=== PATIENT | female | born 1950 | race Caucasian/White ===

== ENCOUNTER → 2017-03-26 | Outpatient (CLI) | payer MEDICARE ==
[2017-03-26 11:51] LABS: Basophils % (A) 1 %; CH 31.3; CHCM 33.5; Eosinophils # (A) 0.2 k/uL (0-0.7); Eosinophils % (A) 3 %; HCT 41.2 % (34.0-46.0); HDW 2.35; Luc # (Auto) 0.16; Luc % (Auto) 3; Lymphocytes # (A) 1.4 k/uL (1.0-4.8); Lymphocytes % (A) 27 %; MCH 31.8 pg (25.0-35.0); MCHC 33.9 g/dL (31.0-37.0); MCV 93.6 fL (80.0-100.0); Mean Platelet Volume 8.1; Monocytes # (A) 0.4 k/uL (0-1.0); Monocytes % (A) 7 %; Neutrophils # (A) 3.1 k/uL (1.3-7.7); Neutrophils % (A) 60 %; RDW 12.7 % (11.5-15.5); WBC 5.2 k/uL (3.8-10.6); WBC (Perox) 5.41
[2017-03-26 12:24] LABS: ALT 36 U/L (9-52); AST 26 U/L (14-36); Alkaline Phosphatase 118 U/L (38-126); Anion Gap 9 mmol/L; Blood Urea Nitrogen 24 mg/dL (7-17); Calcium 9.5 mg/dL (8.4-10.2); Carbon Dioxide 27 mmol/L (22-30); Chloride 107 mmol/L (98-107); Cholesterol 256 mg/dL (<200); Glucose 95 mg/dL (74-99); HDL Cholesterol 55 mg/dL (40-60); Non-African American GFR(MDRD) >60 (>60 ml/min/1.73 sqM); Potassium 4.6 mmol/L (3.5-5.1); Sodium 143 mmol/L (137-145); Total Bilirubin 0.6 mg/dL (0.2-1.3); Total Protein 7.3 g/dL (6.3-8.2); Triglycerides 216 mg/dL (<150)
== END | disposition home or self-care (01) ==
LOC: LABWHC1 11:16
PROVIDERS: ATTEND Family Medicine
DX: Z00.00 Encounter for general adult medical examination without abnormal findings (principal); E03.9 Hypothyroidism, unspecified; K21.0 Gastro-esophageal reflux disease with esophagitis; M19.90 Unspecified osteoarthritis, unspecified site
CPT/HCPCS: 36415; 80053; 80061; 84439; 84443; 85025

== ENCOUNTER → 2017-04-15 | Outpatient (CLI) | payer MEDICARE ==
--- NOTE | 2017-04-15 15:03 | XR ---
EXAMINATION TYPE: XR chest 2V DATE OF EXAM: 04/15/2017 COMPARISON: NONE HISTORY: Shortness of breath TECHNIQUE: Frontal and lateral views of the chest are obtained. FINDINGS: Scattered senescent parenchymal changes noted. Hyperinflation compatible with COPD. No evidence for infiltrate. No evidence for atelectasis. Heart size is stable. Fixed sliding-type hiatal hernia is noted. Remote left-sided rib fractures iden tified. Mediastinal structures are stable and grossly unremarkable. No evidence for hilar prominence. Degenerative changes dorsal spine. IMPRESSION: 1. No evidence for acute pulmonary disease.
== END | disposition home or self-care (01) ==
LOC: RADXRMAIN 14:22
PROVIDERS: ATTEND Family Medicine
DX: R06.02 Shortness of breath (principal)
CPT/HCPCS: 71020

== ENCOUNTER 2017-04-17 07:31 | Day surgery (SDC) | payer MEDICARE ==
[2017-04-13 09:47] VITALS: BMI 35.2
[~2017-04-17 07:31] MED LIST: LACTATED RINGERS 1,000 ML IV SCH; LIDOCAINE 1% 20 ML VIAL (10MG/ML) FOR IV START INTRADERMA PRN
[2017-04-17 08:14] VITALS: RESP 18; TEMP 97.8
[2017-04-17] MEDS ORDERED: GLYCOPYRROLATE 0.2 MG/ML 2 ML VIAL ONE (09:15)
[2017-04-17] MEDS ORDERED: PROPOFOL 10 MG/ML 20 ML VIAL IV ONE (09:15)
[2017-04-17] MEDS ORDERED: LIDOCAINE 1% INJ 10MG/ML (20 ML MDV) ONE (09:15)
--- NOTE | 2017-04-17 09:26 | P.PCN ---
Date of Procedure: 04/17/17 Preoperative Diagnosis: Postoperative Diagnosis: Procedure(s) Performed: BRIEF HISTORY: Patient is a 67-year-old, pleasant, white female, scheduled for an upper endoscopy as a part of evaluation of long-standing history of GERD of several years duration. She is status post antireflux surgery 5 years ago and was able to go off of the Nexium for the last 1 year has been having recurrent symptoms. Currently Nexium 20 mg daily and doing well.. PROCEDURE PERFORMED: Esophagogastroduodenoscopy with biopsy. PREOPERATIVE DIAGNOSIS: Long-standing history of GERD status post antireflux surgery 5 years ago now with recurrent symptoms. IV sedation per anesthesia. PROCEDURE: After informed consent was obtained, the patient was brought into the endoscopy unit. IV sedation was administered by Anesthesia under continuous monitoring. Initially the Olympus GIF-140 video endoscope was inserted into the mouth. Esophagus intubated without any difficulty. It was gradually advanced into the stomach and duodenum and carefully examined. The bulb and the second part of the duodenum appeared normal. The scope at this time was withdrawn to the stomach, adequately insufflated with air, and upon careful examination, mucosa of the antrum, body, cardia and the fundus appeared normal. The Jose fundoplication was intact. No recurrence of hiatal hernia noted. The scope was then withdrawn into the esophagus. The GE junction was located at 34 cm from the incisors. There was a 2 mm tongue of Singh's appearing mucosa just proximal to the GE junction and this was biopsied. The rest of the esophagus appeared normal. There were no erosions or ulcerations seen and the patient tolerated the procedure well. IMPRESSION: 1. Intact Jose fundoplication. 2. Short segment Singh's esophagus status post biopsy. RECOMMENDATIONS: The findings of this examination were discussed with the patient as well as her family. She was advised to continue with Nexium 20 mg daily and follow antireflux measures. If the biopsy confirms presence of Singh's esophagus she can have a repeat upper endoscopy in 2 years.. Implants: Indications for Procedure: Operative Findings: Description of Procedure:
[2017-04-17 09:51] VITALS: BP 115/74; PULSE 88
== END 2017-04-17 10:13 | disposition home or self-care (01) ==
LOC: ORWHC2ENDO 07:31
PROVIDERS: ATTEND Internal Medicine Gastroenterology
DX: K22.70 Barrett's esophagus without dysplasia (principal); K21.9 Gastro-esophageal reflux disease without esophagitis; E07.9 Disorder of thyroid, unspecified; Z79.1 Long term (current) use of non-steroidal anti-inflammatories (NSAID); Z79.899 Other long term (current) drug therapy; Z88.0 Allergy status to penicillin
CPT/HCPCS: 88305; 43239; J2001; J2704

== ENCOUNTER → 2017-04-21 | Outpatient (CLI) | payer MEDICARE ==
--- NOTE | 2017-04-23 09:46 | MM ---
Reason for exam: screening (asymptomatic). Last mammogram was performed 2 years and 9 months ago. History: Patient is postmenopausal and has history of endometrial cancer at age 41. Physical Findings: A clinical breast exam by your physician is recommended on an annual basis and results should be correlated with mammographic findings. MG 3D Screening Mammo W/Cad Bilateral CC and MLO view(s) were taken. Prior study comparison: July 14, 2014, bilateral MG screening mammo w CAD. August 27, 2012, bilateral digital screening mammo w/CAD. August 04, 2011, bilateral digital screening mammo w/CAD. There are scattered fibroglandular densities. No significant changes when compared with prior studies. ASSESSMENT: Negative, BI-RAD 1 RECOMMENDATION: Routine screening mammogram of both breasts in 1 year.
== END | disposition home or self-care (01) ==
LOC: RADMAMWWP 10:54
PROVIDERS: ATTEND Family Medicine
DX: Z12.31 Encounter for screening mammogram for malignant neoplasm of breast (principal)
CPT/HCPCS: 77063; G0202

== ENCOUNTER → 2017-12-16 | Outpatient (CLI) | payer OTHER, MEDICARE ==
--- NOTE | 2017-12-16 11:15 | XR ---
EXAMINATION TYPE: XR chest 2V DATE OF EXAM: 12/16/2017 COMPARISON: 04/15/2017 HISTORY: 67-year-old female with cough and chest pain TECHNIQUE: Frontal and lateral views FINDINGS: ACF hardware and bilateral shoulder replacements partially visualized. Heart appears normal size. Aor ta and pulmonary vasculature within normal. Chronic healed left-sided rib fracture deformities. There is some retrocardiac density which seems to correspond to a rounded area behind the left atrium on t he lateral view. This was present back on 04/15/2017. No consolidation or pleural effusion. IMPRESSION: 1. Suspect a moderate sized hiatal hernia. CT chest can exclude an area of retrocardiac consolidation or mass. 2. No acute cardiopulmonary process.
[2017-12-16 17:55] LABS: Progesterone 0.6 ng/mL
== END | disposition home or self-care (01) ==
LOC: LABWHC1 09:38
PROVIDERS: ATTEND Family Medicine
DX: R05 Cough (principal); R07.9 Chest pain, unspecified; E03.9 Hypothyroidism, unspecified; N95.1 Menopausal and female climacteric states
CPT/HCPCS: 36415; 71046; 82533; 82670; 84144; 84402; 93005

== ENCOUNTER → 2018-10-12 | Outpatient (CLI) | payer OTHER, MEDICARE ==
[2018-10-12 17:44] LABS: T4, Free (Free Thyroxine) 1.6 ng/dL (0.80-1.80)
== END | disposition home or self-care (01) ==
LOC: LABWHC1 10:52
PROVIDERS: ATTEND Family Medicine
DX: E03.9 Hypothyroidism, unspecified (principal)
CPT/HCPCS: 36415; 84439; 84443

== ENCOUNTER → 2018-10-26 | Outpatient (CLI) | payer MEDICARE, OTHER ==
--- NOTE | 2018-10-26 15:24 | XR ---
EXAMINATION TYPE: XR chest 2V DATE OF EXAM: 10/26/2018 COMPARISON: 12/16/2017 INDICATION: Cough and congestion TECHNIQUE: Frontal and lateral views of the chest are obtained. FINDINGS: The heart size is normal. The pulmonary vasculature is normal. The lungs are clear. Old left upper rib fractures are evident. Hiatal hernia may be present. No sign ificant interval changes evident. IMPRESSION: 1. No acute pulmonary process. 2. Hiatal hernia. 3. Postsurgical changes at bilateral shoulders cervical spine
== END | disposition home or self-care (01) ==
LOC: RADXRMAIN 15:04
PROVIDERS: ATTEND Family Medicine
DX: K44.9 Diaphragmatic hernia without obstruction or gangrene (principal); R05 Cough; Z98.890 Other specified postprocedural states
CPT/HCPCS: 71046

== ENCOUNTER → 2019-06-02 | Outpatient (CLI) | payer MEDICARE, OTHER ==
[2019-06-02 08:55] LABS: Basophils % (A) 1 %; Eosinophils # (A) 0.2 k/uL (0-0.7); Eosinophils % (A) 3 %; HCT 41.2 % (34.0-46.0); HGB 13.7 gm/dL (11.4-16.0); Lymphocytes # (A) 1.6 k/uL (1.0-4.8); Lymphocytes % (A) 27 %; MCH 31.6 pg (25.0-35.0); MCHC 33.3 g/dL (31.0-37.0); MCV 94.8 fL (80.0-100.0); Mean Platelet Volume 7.9; Monocytes # (A) 0.4 k/uL (0-1.0); Monocytes % (A) 7 %; Neutrophils # (A) 3.5 k/uL (1.3-7.7); Neutrophils % (A) 60 %; Platelet Count 310 k/uL (150-450); RBC 4.35 m/uL (3.80-5.40); RDW 12.7 % (11.5-15.5); WBC 5.9 k/uL (3.8-10.6)
[2019-06-02 09:02] LABS: Albumin 4.4 g/dL (3.5-5.0); Calcium 9.7 mg/dL (8.4-10.2); Potassium 4.3 mmol/L (3.5-5.1); Total Bilirubin 0.5 mg/dL (0.2-1.3); Total Protein 7.6 g/dL (6.3-8.2)
[2019-06-02 09:12] LABS: T4, Free (Free Thyroxine) 0.82 ng/dL (0.78-2.19)
--- NOTE | 2019-06-02 10:12 | MM ---
Reason for exam: screening (asymptomatic). Last mammogram was performed 2 years and 1 month ago. History: Patient is postmenopausal and has history of endometrial cancer at age 41. Physical Findings: A clinical breast exam by your physician is recommended on an annual basis and results should be correlated with mammographic findings. MG Screening Mammo w CAD Bilateral CC and MLO view(s) were taken. XCCL view(s) were taken of the right breast. Prior study comparison: April 21, 2017, bilateral MG 3d screening mammo w/cad. July 14, 2014, bilateral MG screening mammo w CAD. The breast tissue is heterogeneously dense. This may lower the sensitivity of mammography. There are benign appearing round calcifications bilaterally. There is no discrete abnormality. ASSESSMENT: Benign, BI-RAD 2 RECOMMENDATION: Routine screening mammogram of both breasts in 1 year.
== END | disposition home or self-care (01) ==
LOC: RADMAMWWP 07:44
PROVIDERS: ATTEND Family Medicine
DX: Z12.31 Encounter for screening mammogram for malignant neoplasm of breast (principal); E03.9 Hypothyroidism, unspecified
CPT/HCPCS: 77067; 80053; 80061; 84439; 84443; 85025

== ENCOUNTER 2019-11-02 08:41 | Day surgery (SDC) | payer MEDICARE, OTHER ==
[2019-10-31 18:10] VITALS: BMI 34.2
[2019-11-02 09:14] VITALS: TEMP 97.1
[2019-11-02] MEDS ORDERED: LIDOCAINE 1% INJ 10MG/ML (20 ML MDV) ONE (10:06)
[2019-11-02] MEDS ORDERED: PROPOFOL 10 MG/ML 20 ML VIAL IV ONE (10:06)
--- NOTE | 2019-11-02 10:27 | P.PCN ---
Date of Procedure: 11/02/19 Procedure(s) Performed: Brief history: Patient is a pleasant 69-year-old white female scheduled for an elective upper endoscopy as well as colonoscopy as a part of evaluation of reflux and history of GERD/Singh's esophagus and prior history of colon polyps. Procedure performed: Esophagogastroduodenoscopy with biopsy Colonoscopy Preoperative diagnosis: GERD/history of Singh's esophagus History of colon polyps Anesthesia: MAC Procedure: After informed consent was obtained from the patient was brought into the endoscopy unit and IV sedation was administered by anesthesia under continuous monitoring. Initially upper endoscopy was done. The Olympus GF 160 video endoscope was inserted inserted into the mouth and esophagus intubated without any difficulty and was gradually advanced into the stomach and duodenum and carefully examined. The bulb and second part of the duodenum appeared normal. The scope was then withdrawn into the stomach adequately insufflated with air and upon careful examination the antrum had mild gastritis and biopsies were done from this area. The body, cardia and fundus appeared normal. The scope was then withdrawn into the esophagus. The GE junction was located at 39 cm to the incisors. It appeared regular with no erythema erosions or ulcerations. There was a 3 mm tongue of Singh's appearing mucosa just proximal to the GE junction which was biopsied. Rest of the esophagus appeared normal. Patient tolerated the procedure well. At this time the patient continued to remain sedation. Initial digital rectal examination was normal. Olympus CF 160 video colonoscope was then inserted into the rectum and gradually advanced to the cecum without any difficulty. Careful examination was performed as the scope was gradually being withdrawn. The prep was excellent. The cecum, ascending colon, transverse colon, descending colon, sigmoid colon and rectum appeared normal. Retroflexion was performed in the rectum and no lesions were noted. Patient tolerated the procedure well. Impression: 1. Upper endoscopy revealed short segment Singh's esophagus and mild antral gastritis 2. Colonoscopy was within normal limits with no evidence of colitis or colorectal neoplasia. Recommendations: Findings of this examination were discussed with the patient as well as her family. She was advised to follow with the biopsy results. if the biopsy confirms presence of Singh's esophagus he can have a repeat upper endoscopy in 2-3 years . She can have a repeat colonoscopy in 5 years because of the prior history of colon polyps.
[2019-11-02 10:31] VITALS: RESP 16
[2019-11-02 10:53] VITALS: BP 155/82; PULSE 89
== END 2019-11-02 11:10 | disposition home or self-care (01) ==
LOC: ORWHC2ENDO 08:41
PROVIDERS: ATTEND Internal Medicine Gastroenterology
DX: Z12.11 Encounter for screening for malignant neoplasm of colon (principal); K29.50 Unspecified chronic gastritis without bleeding; K22.70 Barrett's esophagus without dysplasia; K21.9 Gastro-esophageal reflux disease without esophagitis; Z86.010 Personal history of colon polyps; E07.9 Disorder of thyroid, unspecified; F32.9 Major depressive disorder, single episode, unspecified; Z96.653 Presence of artificial knee joint, bilateral; Z90.710 Acquired absence of both cervix and uterus; Z98.890 Other specified postprocedural states; Z79.890 Hormone replacement therapy; Z79.899 Other long term (current) drug therapy; Z88.0 Allergy status to penicillin
CPT/HCPCS: 88305; 43239; J2001; J2704; G0105; 45378

== ENCOUNTER → 2022-08-21 | Outpatient (CLI) | payer MEDICARE, OTHER, BC ==
[2022-08-21 15:02] LABS: Basophils # (A) 0.04 X 10*3/uL (0.00-0.10); Basophils % (A) 0.7 %; Eosinophils # (A) 0.16 X 10*3/uL (0.04-0.35); Eosinophils % (A) 2.9 %; HCT 41.9 % (37.2-46.3); HGB 13.5 g/dL (12.0-15.0); Immature Grans, Automated 0.2 %; Lymphocytes # (A) 1.28 X 10*3/uL (0.90-5.00); Lymphocytes % (A) 23.4 %; MCH 31.7 pg (27.0-32.0); MCHC 32.2 g/dL (32.0-37.0); MCV 98.4 fL (80.0-97.0); Mean Platelet Volume 12.4 fL (9.5-12.2); Monocytes # (A) 0.54 X 10*3/uL (0.20-1.00); Monocytes % (A) 9.9 %; NRBC Per 100 WBC 0 /100 WBCS (0.0-0.0); Neutrophils # (A) 3.44 X 10*3/uL (1.80-7.70); Neutrophils % (A) 62.9 %; Platelet Count 259 X 10*3/uL (140-440); RBC 4.26 X 10*6/uL (4.10-5.20); RDW 12.3 % (11.5-14.5); WBC 5.47 X 10*3/uL (4.50-10.00)
[2022-08-21 15:21] LABS: ALT 21 U/L (8-44); AST 23 U/L (13-35); African American GFR (CKD) 65.6 (60.0-200.0); Albumin 4.3 g/dL (3.8-4.9); Albumin/Globulin Ratio 1.48 (1.60-3.17); Alkaline Phosphatase 105 U/L (41-126); Blood Urea Nitrogen 22.1 mg/dL (9.0-27.0); Calcium 9.4 mg/dL (8.7-10.3); Carbon Dioxide 26.3 mmol/L (20.0-27.5); Chloride 104 mmol/L (96-109); Chol/HDL Ratio 4.97 Ratio; Globulin 2.9 g/dL (1.6-3.3); Glucose 90 mg/dL (70-110); LDL Cholesterol,Calculated 175.9 mg/dL (0.0-131.0); Non-African American GFR(CKD) 56.6 (60.0-200.0); Potassium 4.6 mmol/L (3.5-5.5); Sodium 140 mmol/L (135-145); Total Protein 7.2 g/dL (6.2-8.2); Uric Acid 5.6 mg/dL (2.9-7.7)
== END | disposition home or self-care (01) ==
LOC: LABWHC1 08:29
PROVIDERS: ATTEND Family Medicine
DX: I10 Essential (primary) hypertension (principal)
CPT/HCPCS: 36415; 80053; 80061; 82652; 83036; 84439; 84443; 84550; 85025

== ENCOUNTER → 2023-02-20 | Outpatient (CLI) | payer MEDICARE, OTHER ==
[2023-02-20 16:57] LABS: T4, Free (Free Thyroxine) 1.51 ng/dL (0.800-1.800)
== END | disposition home or self-care (01) ==
LOC: LABWHC1 08:14
PROVIDERS: ATTEND Family Medicine
DX: E03.9 Hypothyroidism, unspecified (principal)
CPT/HCPCS: 36415; 84439; 84443

== ENCOUNTER → 2023-08-18 | Outpatient (CLI) | payer OTHER, MEDICARE ==
--- NOTE | 2023-08-19 09:50 | MM ---
Reason for Exam: Screening (asymptomatic). Last mammogram was performed 4 year(s) and 2 month(s) ago. Patient History: Menarche at age 12. First Full-Term at age 17. Hysterectomy at age 41. Postmenopausal. Endometrial cancer, age 41. Risk Values: Milagros 5 year model risk: 1.4%. NCI Lifetime model risk: 3.6%. Prior Study Comparison: 07/14/2014 Bilateral Screening Mammogram, [facility]. 04/21/2017 Bilateral Screening Mammogram, [facility]. 06/02/2019 Bilateral Screening Mammogram, [facility]. Tissue Density: The breast tissue is heterogeneously dense. This may lower the sensitivity of mammography. Findings: Analyzed By CAD. There is no suspicious group of microcalcifications or new suspicious mass. Benign-appearing calcifications bilaterally. Overall Assessment: Benign, BI-RAD 2 Management: Screening Mammogram of both breasts in [address] [facility] will attempt to contact patient to return for supplemental views and ultrasound if indicated. Patient should continue monthly self-breast exams. A clinical breast exam by your physician is recommended on an annual basis. This exam should not preclude additional follow-up of suspicious palpable abnormalities. Note on Milagros scores and lifetime risk: 1. A Milagros score greater than 3% is considered moderate risk. If this is the case, consider specialist referral to assess eligibility for a risk reducing agent. 2. If overall lifetime risk for the development of breast cancer is 20% or higher, the patient may qualify for future screening with alternating mammogram and breast MRI. Electronically signed and approved by: Barrett Chappell DO
== END | disposition home or self-care (01) ==
LOC: RADMAMWWP 09:03
PROVIDERS: ATTEND Family Medicine
DX: Z12.31 Encounter for screening mammogram for malignant neoplasm of breast (principal); Z78.0 Asymptomatic menopausal state
CPT/HCPCS: 77063; 77067

== ENCOUNTER → 2024-09-29 | Outpatient (CLI) | payer MEDICARE ==
--- NOTE | 2024-09-29 08:56 | MM ---
Reason for Exam: Screening (asymptomatic). Last mammogram was performed 1 year(s) and 2 month(s) ago. Patient History: Menarche at age 12. First Full-Term at age 17. Hysterectomy at age 41. Postmenopausal. Risk Values: Milagros 5 year model risk: 1.4%. NCI Lifetime model risk: 3.4%. Prior Study Comparison: 04/21/2017 Bilateral Screening Mammogram, [facility]. 06/02/2019 Bilateral Screening Mammogram, [facility]. 08/18/2023 Bilateral MG 3D screening mammo w/cad, [facility]. Tissue Density: The breasts are heterogeneously dense, which may obscure small masses. Findings: Analyzed By CAD. Right breast: There is no suspicious group of microcalcifications or new suspicious mass. Benign-appearing calcifications right breast. Left breast: There is no suspicious group of microcalcifications or new suspicious mass. Benign-appearing calcifications left breast. Overall Assessment: Benign, BI-RAD 2 Management: Screening Mammogram of both breasts in [address] [facility] will attempt to contact patient to return for supplemental views and ultrasound if indicated. Patient should continue monthly self-breast exams. A clinical breast exam by your physician is recommended on an annual basis. This exam should not preclude additional follow-up of suspicious palpable abnormalities. Note on Milagros scores and lifetime risk: 1. A Milagros score greater than 3% is considered moderate risk. If this is the case, consider specialist referral to assess eligibility for a risk reducing agent. 2. If overall lifetime risk for the development of breast cancer is 20% or higher, the patient may qualify for future screening with alternating mammogram and breast MRI. [facility], , 09/29/2024 8:52 AM. Electronically signed and approved by: Barrett Chpapell DO
--- NOTE | 2024-10-03 07:41 | BD ---
EXAMINATION TYPE: Axial Bone Density DATE OF EXAM: 09/29/2024 CLINICAL HISTORY: 74 years old Female. ICD-10 CODE: Z78.0 postmenopausal , Additional History: Height: 58.2 Weight: 194 FRAX RISK QUESTIONS: Secondary Osteoporosis: 3. Menopause before 45: yes RISK FACTORS HISTORY OF: MEDICATIONS: Thyroid Medications: Which medication: Synthroid How Long: about 30 years EXAM MEASUREMENTS: Bone mineral densitometry was performed using the [employer] System. Bone mineral density as measured about the Lumbar spine is: ----- L1-L4(G/cm2): 1.377 T Score Values are as follows: ----- L1: 0.8 ----- L2: 0.4 ----- L3: 2.6 ----- L4: 2.7 ----- L1-L4: 1.6 Z Score Values are as follows: ----- L1: 1.8 ----- L2: 1.3 ----- L3: 3.6 ----- L4: 3.7 ----- L1-L4: 2.6 Bone mineral density has: Increased 8.4% since study of: 05-20-04 Bone mineral density about the R hip (g/cm2): 1.113 Bone mineral density about the L hip (g/cm2): 1.081 T Score values are as follows: -----R Neck: -0.2 -----L Neck: -0.4 -----R Total: 0.8 -----L Total: 0.6 Z Score values are as follows: -----R Neck: 1.1 -----L Neck: 0.9 -----R Total: 1.9 -----L Total: 1.7 Bone mineral density has: Decreased -5.7% since study of: 05-20-04 FRAX%s: The graph provided illustrates a 7.2% chance for a major osteoporotic fx and a 0.6% chance fo r the hips probability for fx in 10 years time. IMPRESSION: Normal (Values between +1 and -1 indicate normal bone mass). Consider repeating this study in 5 year s or sooner if there is some new clinical indication. NOTE: T-SCORE=SD OF THE YOUNG ADULT MEAN. [facility], , 10/03/2024 7:39 AM
== END | disposition home or self-care (01) ==
LOC: RADMAMWWP 07:49
PROVIDERS: ATTEND Family Medicine
DX: Z12.31 Encounter for screening mammogram for malignant neoplasm of breast (principal); Z78.0 Asymptomatic menopausal state; R92.333 Mammographic heterogeneous density, bilateral breasts
CPT/HCPCS: 77063; 77067; 77080